=== PATIENT | female | born 1990 | race African-American/Black ===

== ENCOUNTER 2017-01-02 00:04 | Inpatient (IN) ==
[2017-01-02] MEDS ORDERED: BUTORPHANOL 2 MG/ML VIAL IV PRN (00:24)
[2017-01-02] MEDS ORDERED: ONDANSETRON 4 MG/2 ML VIAL IV PRN ×2 (00:24→09:13)
[2017-01-02] MEDS ORDERED: fentaNYL 2 MCG/ROPIV 0.2% EPID 150 ML EPIDURAL PRN (00:28)
[2017-01-02] MEDS ORDERED: diphenhydrAMINE 50 MG/1 ML VIAL IV PRN ×2 (00:28)
[2017-01-02] MEDS ORDERED: ePHEDrine 50 MG/ML AMP IV PRN (00:28)
[2017-01-02] MEDS ORDERED: hydrOXYzine HCL 25 MG/1 ML VIAL IM PRN (00:28)
[2017-01-02] MEDS ORDERED: PROMETHAZINE 25 MG/1 ML VIAL IM PRN (00:28)
[2017-01-02] MEDS ORDERED: FAMOTIDINE 20 MG/2 ML VIAL IV PRN (00:29)
[2017-01-02] MEDS ORDERED: CITRIC ACID/SODIUM CITRATE 30 ML UDCUP PO PRN (00:29)
[2017-01-02] MEDS ORDERED: OXYTOCIN/LR 20 UNIT/1,000 ML BAG IV SCH (00:30)
[2017-01-02] MEDS: LACTATED RINGERS 1,000 ML IV SCH ×4 (00:45→15:18)
[2017-01-02 01:15] LABS: Basophils % 0.3 % (0.0-0.8); Eosinophils % 0.4 % (0.00-10.9); Hematocrit 26.9 VOL% (35.7-47.0); Hemoglobin 8.3 GM/DL (12.0-16.0); Immature Granulocytes % 1.7 %; Immature Granulocytes Absolute 0.18 #; Lymphocytes # 2.3 10*3/uL (1.4-4.0); Lymphocytes % 21.3 % (21.3-54.2); Mean Corpuscular HGB Conc 30.9 GM/DL (32-36); Mean Corpuscular Hemoglobin 19 PG (27-34); Mean Corpuscular Volume 61.7 FL (87-102); Monocytes # 0.7 10*3/uL (0.11-0.8); Monocytes % 6.2 % (1.7-12.7); NRBC # 0.11 10*3/uL; Neutrophils # 7.4 10*3/uL (1.4-7.4); Neutrophils % 70.1 % (38.7-73.9); Platelet Count 316 T/CUMM (130-400); Red Blood Count 4.36 MC/CUMM (3.8-5.5); Red Cell Distribution Width 25.4 % (9.3-17.3); White Blood Count 10.6 T/CUMM (4-12)
[2017-01-02 01:16] LABS: Albumin 2.9 G/DL (3.4-5.0); Bilirubin,Total 0.5 MG/DL (0.2-1.0); Calcium 9.1 MG/DL (8.5-10.1); Osmolality,Calculated 269.8 MOS/KG (273-304); Potassium 4.1 MMOL/L (3.5-5.1); Total Protein 6.8 G/DL (6.4-8.3)
[2017-01-02 04:52] LABS: Apearance,Urine CLEAR (Clear); Bacteria,Urine Occasional /HPF (Few); Bilirubin,Urine Negative (Negative); Blood, Urine Negative (Negative); Glucose,Urine (UA) Negative (Negative); Ketones,Urine Negative (Negative); Nitrite,Urine Negative (Negative); Protein,Urine Negative; RBC,Urine 1 /HPF (0-4); Renal Epithelial Cells,Urine Occasional /HPF (<1); Squamous Epithelial Cell,Urine Occasional /HPF (0-10); Urine Color Straw (Yellow); Urine Specific Gravity 1.005 (1.001-1.035); Urine Urobilinogen < 2.0 EU/DL (0.2-1.0); WBC,Urine 1 /HPF (0-6)
[2017-01-02] MEDS ORDERED: METHYLERGONOVINE 0.2 MG/1 ML AMP ONE (08:43)
[2017-01-02] MEDS ORDERED: miSOPROStol 200 MCG TABLET ONE (08:43)
[2017-01-02] MEDS ORDERED: ACETAMINOPHEN 325 MG TABLET PO PRN (09:13)
[2017-01-02] MEDS ORDERED: BENZOCAINE 20%/MENTHOL 0.5% SPRAY 56 GM CAN TOP PRN (09:13)
[2017-01-02] MEDS ORDERED: OXYTOCIN/LR 20 UNIT/1,000 ML BAG IV ONE (09:13)
[2017-01-02] MEDS ORDERED: oxyCODONE/ACETAMINOPHEN 5-325 MG TABLET PO PRN ×2 (09:13)
[2017-01-02] MEDS ORDERED: HYDROCORTISONE 2.5% RECTAL CREAM 30 GM TUBE TOP PRN (09:13)
[2017-01-02] MEDS ORDERED: WITCH HAZEL PADS 100/JAR TOP PRN (09:13)
[2017-01-02] MEDS ORDERED: BISACODYL 10 MG SUPP RECTAL PRN (09:13)
[2017-01-02] MEDS ORDERED: LANOLIN 50% CREAM 0.3 OZ TUBE TOP PRN (09:13)
[2017-01-02] MEDS ORDERED: DIPH/TET/ACEL PERT BOOSTER VACCINE 0.5 ML VIAL IM ONE (09:13)
[2017-01-02] MEDS ORDERED: RHO(D) IMMUNE GLOBULIN 300 MCG SYRINGE IM ONE (09:13)
[2017-01-02] MEDS ORDERED: MEASLES/MUMPS/RUBELLA VACCINE 0.5 ML VIAL SUBCUT ONE (09:13)
[2017-01-02] MEDS: IBUPROFEN 800 MG TABLET PO PRN (13:45)
[2017-01-02] MEDS: DOCUSATE SODIUM 100 MG CAPSULE PO SCH (21:33)
[2017-01-03 06:20] LABS: Basophils % 0.4 % (0.0-0.8); Eosinophils # 0.2 10*3/uL (0.0-0.87); Eosinophils % 1.5 % (0.00-10.9); Hematocrit 20.5 VOL% (35.7-47.0); Immature Granulocytes % 1.2 %; Immature Granulocytes Absolute 0.12 #; Lymphocytes # 2.1 10*3/uL (1.4-4.0); Lymphocytes % 21.7 % (21.3-54.2); Mean Corpuscular HGB Conc 30.2 GM/DL (32-36); Mean Corpuscular Hemoglobin 18 PG (27-34); Mean Corpuscular Volume 60.7 FL (87-102); Mean Platelet Volume 10.3 FL (9.6-12.0); Monocytes # 0.7 10*3/uL (0.11-0.8); NRBC # 0.07 10*3/uL; Neutrophils # 6.6 10*3/uL (1.4-7.4); Neutrophils % 68.2 % (38.7-73.9); Platelet Count 248 T/CUMM (130-400); Red Blood Count 3.38 MC/CUMM (3.8-5.5); Red Cell Distribution Width 24.5 % (9.3-17.3); White Blood Count 9.7 T/CUMM (4-12)
[2017-01-03 06:31] LABS: Hemoglobin 6.2 GM/DL (12.0-16.0)
[2017-01-03 07:11] LABS: Hypochromasia 2+; Macrocytosis 2+; Polychromasia Slight; Target Cells Slight
[2017-01-03] MEDS: FERROUS SULFATE 325 MG TABLET PO SCH ×3 (08:54→20:52)
[2017-01-03] MEDS: DOCUSATE SODIUM 100 MG CAPSULE PO SCH ×2 (08:54→20:52)
[2017-01-03] MEDS: IBUPROFEN 800 MG TABLET PO PRN (20:53)
[2017-01-04] MEDS: FERROUS SULFATE 325 MG TABLET PO SCH (08:42)
[2017-01-04] MEDS: DOCUSATE SODIUM 100 MG CAPSULE PO SCH (08:50)
[2017-01-04 11:26] VITALS: BP 124/73
== END 2017-01-04 13:00 | disposition home or self-care (01) | DRG 775 ==
LOC: N.LDOUT 00:04 → N.LD 00:06 → N.OB 13:46
PROVIDERS: ADMIT Obstetrics & Gynecology; ATTEND Obstetrics & Gynecology